=== PATIENT | male | born 1955 | race Caucasian/White ===

== ENCOUNTER 2020-05-15 05:23 | Day surgery (SDC) | payer OTHER ==
[2020-05-14 10:14] VITALS: BMI 38.7
[2020-05-15] MEDS ORDERED: SODIUM CHLORIDE 500 ML IV SCH (10:32)
[2020-05-15] MEDS ORDERED: MIDAZOLAM HCL 2 MG/2 ML SINGLE DOSE VIAL IVPUSH ONE (10:33)
[2020-05-15] MEDS ORDERED: ACETAMINOPHEN 325 MG TABLET (FP) PO ONE (14:30)
[2020-05-15] MEDS ORDERED: ACETAMINOPHEN 325 MG TABLET (FP) ONE (14:31)
[2020-05-15 16:21] VITALS: TEMP 97.8
[2020-05-15 16:28] VITALS: BP 122/67
[2020-05-15 16:44] VITALS: PULSE 63
== END 2020-05-15 15:00 | disposition home or self-care (01) ==
LOC: JRADIR 05:23
PROVIDERS: ATTEND Internal Medicine Gastroenterology
PROC: 0FB13ZX Excision of Right Lobe Liver, Percutaneous Approach, Diagnostic (ICD-10-PCS; principal; 2020-05-15)
DX: K75.81 Nonalcoholic steatohepatitis (NASH) (principal); Z85.46 Personal history of malignant neoplasm of prostate
CPT/HCPCS: 47000; 76942-TC; 87899; 88305-TC; 88313-TC

== ENCOUNTER 2021-09-22 13:32 | Emergency (ER) | payer OTHER ==
[2021-09-22 14:19] VITALS: BP 145/79; PULSE 95; RESP 19; TEMP 98.2; BMI 38.2
== END 2021-09-22 15:46 | disposition home or self-care (01) ==
LOC: JERFT 13:32 → JER 13:32 → JERFT 15:46
DX: M54.50 Low back pain, unspecified (principal)
CPT/HCPCS: 99283-25